=== PATIENT | male | born 1955 | race Caucasian/White ===

== ENCOUNTER 2017-01-24 07:56 | Day surgery (SDC) | payer BC ==
[~2017-01-24 07:56] MED LIST: Lactated Ringers 1,000 ML IV SCH; Lidocaine 1%/Sod Bicarbonate in NS 8.4% 1 ML Syringe IV PRN; Sodium Chloride 0.9% 10 ML Syringe FLUSH PRN
--- NOTE | 2017-01-24 08:27 | PCM.PREANE ---
Preanesthetic Assessment - Anesthesia/Transfusion/Family Hx Anesthesia History: Prior Anesthesia Without Reaction Family History of Anesthesia Reaction: No Transfusion History: No Prior Transfusion(s) Intubation History: Unknown - Review of Systems General: No Symptoms Pulmonary: No Symptoms Cardiovascular: Other (CAD with stent (2004), HTN, HLD, [place]) Gastrointestinal: No symptoms Neurological: No Symptoms Other: Reports: None - Physical Assessment NPO Status Date: 01/23/17 NPO Status Time: 21:00 Pulse: 65 O2 Sat by Pulse Oximetry: 93 Respiratory Rate: 16 Blood Pressure: 151/88 Temperature: 36.8 C Height: 1.8 m Weight: 142.428 kg ASA Class: 3 Mental Status: Alert & Oriented x3 Dentition: Reports: Normal Dentition, Partial ROM/Head Extension: Full Lungs: Clear to auscultation, Normal respiratory effort Cardiovascular: Regular Rate, Regular Rhythm - Blood Blood Available: No Product(s) Available: None - Anesthesia Plan Pre-Op Medication Ordered: None Beta Bertha: Metoprolol Med Last Dose Date: 01/24/17 Med Last Dose Time: 06:00 - Acknowledgements Anesthesia Type Planned: MAC (hasnt taken plavix for 6 days) Pt an Appropriate Candidate for the Planned Anesthesia: Yes Alternatives and Risks of Anesthesia Discussed w Pt/Guardian: Yes Pt/Guardian Understands and Agrees with Anesthesia Plan: Yes PreAnesthesia Questionnaire - SUBSTANCE USE Smoking Status *Q: Former Smoker Tobacco Use Within Last Twelve Months: No Second Hand Smoke Exposure: No Recreational Drug Use History: No - CURRENT (IN HOUSE) MEDS Current Meds: Current Medications Lactated Ringer's (Ringers, Lactated) 1,000 mls @ 125 mls/hr IV ASDIRECTED [facility] Stop: 01/24/17 23:00 Lidocaine/Sodium Bicarbonate (Buffered Lidocaine 1% In Ns 8.4%) 0.25 ml IV ONETIME PRN PRN Reason: Prior to IV Start Stop: 01/24/17 18:00 Sodium Chloride (Saline Flush) 10 ml FLUSH ASDIRECTED PRN PRN Reason: Keep Vein Open Stop: 01/24/17 18:00
[2017-01-24] MEDS ORDERED: Midazolam 1 MG/ML 2 ML SDV ONE (08:49)
[2017-01-24] MEDS ORDERED: Propofol 200 MG/20 ML SDV ONE ×2 (08:49→10:11)
[2017-01-24] MEDS ORDERED: Simethicone Drops 40 MG/0.6 ML 30 ML Bottle ONE (09:39)
--- NOTE | 2017-01-24 10:09 | PCM48HPAN ---
Post Anesthesia Note - EVALUATION WITHIN 48HRS OF ANESTHETIC Vital Signs in Normal Range: Yes Patient Participated in Evaluation: Yes Respiratory Function Stable: Yes Airway Patent: Yes Cardiovascular Function Stable: Yes Hydration Status Stable: Yes Pain Control Satisfactory: Yes Nausea and Vomiting Control Satisfactory: Yes Mental Status Recovered: Yes
--- NOTE | 2017-01-24 10:09 | PCM.OPNOTE ---
- General Post-Op/Procedure Note Date of Surgery/Procedure: 01/24/17 Operative Procedure(s): screening colonoscopy Pre Op Diagnosis: screening Post-Op Diagnosis: Same Anesthesia Technique: MAC Primary Surgeon: Erasmo Deleon EBL in mLs: 0 Complications: None Condition: Good
[2017-01-24 10:19] VITALS: BP 115/76
--- NOTE | 2017-01-25 08:49 | OR ---
DATE OF OPERATION: 01/24/2017 SURGEON: Erasmo Deleon MD PREOPERATIVE DIAGNOSIS: Screening colonoscopy. POSTOPERATIVE DIAGNOSIS: Screening colonoscopy. OPERATION PERFORMED: Colonoscopy to cecum and cannulation of the ileum. FINDINGS: Normal study. RECOMMENDATIONS: Repeat colonoscopy in 10 years. ANESTHESIA: Procedure done under IV sedation. DESCRIPTION OF PROCEDURE: The patient was taken to the operating room, placed in a supine position, connected to monitoring equipment, given IV sedation, and placed in left lateral position. The perianal area was inspected. Rectal exam performed and video Olympus colonoscope was then introduced into the rectum and threaded up without problem to the cecum, where the ileocecal valve and appendicular orifice was noted. The ileum was cannulated and was normal. Prep was excellent. [place] Cleansing score grade A and the scoped throughout the colon, and the scope was slowly withdrawn showing the cecum, ascending colon, transverse colon, descending colon, sigmoid colon, and rectum. Retroflexed view was done. The patient tolerated the procedure, sent to recovery room in a stable condition. He will be followed up as needed by family doctor. ESTIMATED BLOOD LOSS: MMODAL /[id number]
== END 2017-01-24 10:31 | disposition home or self-care (01) ==
LOC: JD.SDS 07:56
PROVIDERS: ATTEND Surgery
PROC: 0DJD8ZZ Inspection of Lower Intestinal Tract, Via Natural or Artificial Opening Endoscopic (ICD-10-PCS; principal; 2017-01-24)
DX: Z12.11 Encounter for screening for malignant neoplasm of colon (principal); I25.10 Atherosclerotic heart disease of native coronary artery without angina pectoris; I10 Essential (primary) hypertension; I25.2 Old myocardial infarction; Z85.46 Personal history of malignant neoplasm of prostate; Z87.891 Personal history of nicotine dependence; Z90.89 Acquired absence of other organs; Z98.890 Other specified postprocedural states; Z79.02 Long term (current) use of antithrombotics/antiplatelets; Z79.82 Long term (current) use of aspirin; Z79.899 Other long term (current) drug therapy
CPT/HCPCS: 45378; A9270; J2250; J7120; 00810; J2704

== ENCOUNTER 2017-10-17 11:01 | Day surgery (SDC) | payer BC ==
[~2017-10-17 11:01] MED LIST changes: +Bisacodyl 5 MG Tab PO PRN; +Cyclobenzaprine 10 MG Tab PO PRN; +Lidocaine 1%/Sod Bicarbonate in NS 8.4% 1 ML Syringe IDERM PRN; -Lidocaine 1%/Sod Bicarbonate in NS 8.4% 1 ML Syringe IV PRN; +Magnesium Hydroxide 400 MG/5 ML Susp 30 ML Cup PO PRN; +Morphine 2 MG/ML Syringe IVPUSH PRN; +Naloxone 0.4 MG/ML SDV IVPUSH PRN; +Ondansetron 4 MG/2 ML SDV IVPUSH PRN; +Sennosides 8.6 MG Tab PO PRN; +diphenhydrAMINE 50 MG/ML SDV IVPUSH PRN
--- NOTE | 2017-10-17 11:30 | PCM.PREANE ---
Preanesthetic Assessment - Anesthesia/Transfusion/Family Hx Anesthesia History: Prior Anesthesia Without Reaction Family History of Anesthesia Reaction: No Transfusion History: No Prior Transfusion(s) Intubation History: Unknown - Review of Systems General: No Symptoms Pulmonary: No Symptoms (Former smoker: quit in 2001) Cardiovascular: No Symptoms (History of HTN,ASHD, ST elevation infarction involving left main coronary artery with stent placement noted in 2004. ( Patient does take plavix.)) Neurological: No Symptoms (Back surgery for herniated ruptured disk), Gait Disturbance (due to left knee pain) Other: Reports: None, Easy Bleeding (Patient does take plavix and has been off for seven days. (last dose 10/09/2017)), Easy Bruising - Physical Assessment NPO Status Date: 10/16/17 NPO Status Time: 21:30 Pulse: 71 O2 Sat by Pulse Oximetry: 93 Respiratory Rate: 16 Blood Pressure: 160/97 Temperature: 36.1 C Height: 1.78 m Weight: 144.696 kg ASA Class: 3 Mental Status: Alert & Oriented x3 Airway Class: Mallampati = 3 Dentition: Reports: Normal Dentition (dental implants noted.), Caries Thyro-Mental Finger Breadths: 3 Mouth Opening Finger Breadths: 3 ROM/Head Extension: Full Lungs: Clear to Auscultation, Normal Respiratory Effort Cardiovascular: Regular Rate, Regular Rhythm, No Murmurs - Lab Values: Laboratory Last Values MRSA (PCR) Negative 10/05/17 13:00 hgb= 15 hct=45.1 [id number]=812,000 All other lab values reviewed and noted and within acceptable ranges to proceed with scheduled procedure. - Imaging/EKG Impressions: EKG: SR rate=61, borderline left axis deviation CXR: Unremarkable Patient declined a lexiscan stress test. - Allergies Allergies/Adverse Reactions: Allergies Allergy/AdvReac Type Severity Reaction Status Date / Time No Known Allergies Allergy Verified 01/24/17 08:38 - Anesthesia Plan Pre-Op Medication Ordered: Beta Bertha Beta Bertha: Metoprolol Med Last Dose Date: 10/17/17 Med Last Dose Time: 09:00 - Acknowledgements Anesthesia Type Planned: Spinal (Femoral nerve block within the adductor canal on the left leg for post operative pain control under US guidance requested by Dr. Aleman.) Pt an Appropriate Candidate for the Planned Anesthesia: Yes Alternatives and Risks of Anesthesia Discussed w Pt/Guardian: Yes Pt/Guardian Understands and Agrees with Anesthesia Plan: Yes PreAnesthesia Questionnaire HEENT History: Reports: None Cardiovascular History: Reports: CAD, Hypertension, [place], Stents, Other (See Below ) Other Cardiovascular History: arteriosclerotic heart disease Respiratory History: Reports: None Gastrointestinal History: Reports: None Genitourinary History: Reports: Other (See Below) Other Genitourinary History: prostate neoplasm [employer] History: Reports: None Musculoskeletal History: Reports: Other (See Below) Other Musculoskeletal History: left knee pain, right foot fracture x 2 Neurological History: Reports: Other (See Below) Other Neuro History: back surgery herniated/ruptured disc Psychiatric History: Reports: None Endocrine/Metabolic History: Reports: None Hematologic History: Reports: None Immunologic History: Reports: None Oncologic (Cancer) History: Reports: Prostate Dermatologic History: Reports: None - Past Surgical History HEENT Surgical History: Reports: Oral Surgery, Tonsillectomy Cardiovascular Surgical History: Reports: None Respiratory Surgical History: Reports: None GI Surgical History: Reports: Colonoscopy, EGD Female Surgical History: Reports: None Male Surgical History: Reports: None Endocrine Surgical History: Reports: None Neurological Surgical History: Reports: None Musculoskeletal Surgical History: Reports: None Oncologic Surgical History: Reports: None Dermatological Surgical History: Reports: None - SUBSTANCE USE Smoking Status *Q: Former Smoker Tobacco Use Within Last Twelve Months: No Second Hand Smoke Exposure: No Recreational Drug Use History: No - HOME MEDS Home Medications: Home Meds Aspirin 81 mg PO DAILY 10/14/17 [History] Clopidogrel Bisulfate [Clopidogrel] 75 mg PO DAILY 10/14/17 [History] Ibuprofen [Motrin] 600 mg PO BID PRN 10/14/17 [History] Losartan [Cozaar] 100 mg PO DAILY 10/14/17 [History] Metoprolol Succinate [Metoprolol Succinate] 50 mg PO DAILY 10/14/17 [History] Pantoprazole Sodium [Protonix] 40 mg PO DAILY PRN 10/14/17 [History] amLODIPine Besylate [Amlodipine Besylate] 5 mg PO DAILY 10/14/17 [History] traMADol HCl [Tramadol HCl] 50 mg PO TID PRN 10/14/17 [History] - CURRENT (IN HOUSE) MEDS Current Meds: Current Medications Aspirin (Ecotrin) 325 mg PO BID [facility] Bisacodyl (Dulcolax) 5 mg PO DAILY PRN PRN Reason: Constipation Cyclobenzaprine HCl (Flexeril) 10 mg PO TID PRN PRN Reason: Spasms Diphenhydramine HCl (Benadryl) 25 mg IVPUSH Q4H PRN PRN Reason: Nausea Docusate Sodium (Colace) 100 mg PO BID [facility] Famotidine (Pepcid) 20 mg PO Q12H [facility] Lactated Ringer's (Ringers, Lactated) 1,000 mls @ 125 mls/hr IV ASDIRECTED [facility] Stop: 10/17/17 23:00 Cefazolin Sodium/Dextrose 2 gm (/ Premix) 50 mls @ 100 mls/hr IV Q8H [facility] Stop: 10/17/17 23:29 Ketorolac Tromethamine (Toradol) 15 mg IVPUSH Q6H PRN PRN Reason: Pain Lidocaine/Sodium Bicarbonate (Buffered Lidocaine 1% In Ns 8.4%) 0.25 ml IDERM ONETIME PRN PRN Reason: Prior to IV Start Stop: 10/17/17 18:00 Magnesium Hydroxide (Milk Of Magnesia) 30 ml PO BID PRN PRN Reason: Constipation Morphine Sulfate (Morphine) 2 mg IVPUSH Q2H PRN PRN Reason: Breakthrough Pain Naloxone HCl (Narcan) 0.1 mg IVPUSH Q5M PRN PRN Reason: Oversedation Ondansetron HCl (Zofran) 4 mg IVPUSH Q6H PRN PRN Reason: Nausea/Vomiting Oxycodone/Acetaminophen (Percocet 325-5 Mg) 1 - 2 tab PO Q4H PRN PRN Reason: Pain Senna (Senna) 8.6 mg PO BID PRN PRN Reason: Constipation Sodium Chloride (Saline Flush) 10 ml FLUSH ASDIRECTED PRN PRN Reason: Keep Vein Open Stop: 10/17/17 18:00 Discontinued Medications Bupivacaine HCl (Marcaine 0.25%) Confirm Administered Dose 30 ml .ROUTE .STK- MED ONE Stop: 10/17/17 11:08 Cefazolin Sodium (Ancef) Confirm Administered Dose 2 gm .ROUTE .STK-MED ONE Stop: 10/17/17 11:08 Morphine Sulfate 8 mg/Epinephrine HCl 0.3 mg/Cefuroxime Sodium 750 mg/Ketorolac Tromethamine 30 mg/Sodium Chloride 27.9 ml 0 mg .XX ONETIME ONE Stop: 10/17/17 06:47 Iodine (Iodine 2% Mild Tincture) Confirm Administered Dose 30 ml .ROUTE .STK- MED ONE Stop: 10/17/17 11:08 Tranexamic Acid (Cyklokapron) Confirm Administered Dose 1,000 mg .ROUTE .STK- MED ONE Stop: 10/17/17 11:08 Vancomycin HCl (Vancomycin) Confirm Administered Dose 1 gm .ROUTE .STK-MED ONE Stop: 10/17/17 11:08
[2017-10-17] MEDS ORDERED: Propofol 200 MG/20 ML SDV ONE ×2 (11:43→14:17)
[2017-10-17] MEDS ORDERED: Midazolam 1 MG/ML 2 ML SDV ONE (11:43)
[2017-10-17] MEDS ORDERED: ceFAZolin 1 GM Vial ONE ×2 (11:44→12:44)
[2017-10-17] MEDS ORDERED: Lidocaine 1% 4 ML ONE (11:44)
[2017-10-17] MEDS ORDERED: Ketamine 500 mg/10 ML MDV ONE (13:02)
[2017-10-17] MEDS ORDERED: Ondansetron 4 MG/2 ML SDV ONE (13:10)
[2017-10-17] MEDS ORDERED: Dexamethasone 4 MG/ML 5 ML MDV ONE (13:10)
[2017-10-17] MEDS: Bupivacaine 0.25% 30 ML SDV ONE ×2 (13:27→13:58)
[2017-10-17] MEDS: Iodine/Sodium Iodide 2% Tincture 30 ML Bottle ONE ×2 (13:28→13:50)
[2017-10-17] MEDS: ceFAZolin 1 GM Vial ONE ×2 (13:28→13:52)
[2017-10-17] MEDS: Morphine 8 MG, EPINEPHrine 0.3 MG, Cefuroxime 750 MG, Ketorolac 30 MG, Sodium Chloride ... ONE ×15 (13:29→19:51)
[2017-10-17] MEDS: Vancomycin 1 GM SDV ONE ×2 (13:30→14:00)
[2017-10-17] MEDS ORDERED: HYDROmorphone 0.5 MG/0.5 ML Syringe IVPUSH PRN (13:37)
[2017-10-17] MEDS ORDERED: ePHEDrine 50 MG/ML SDV IVPUSH PRN (13:37)
[2017-10-17] MEDS ORDERED: fentaNYL 100 MCG/2 ML SDV IVPUSH PRN (13:37)
[2017-10-17] MEDS ORDERED: diphenhydrAMINE 50 MG/ML SDV IVPUSH PRN (13:37)
[2017-10-17] MEDS ORDERED: Haloperidol Lactate 5 MG/ML SDV IVPUSH ONE (13:37)
[2017-10-17] MEDS ORDERED: Phenylephrine/Normal Saline 100 MCG/ML 10 ML Syringe ONE ×2 (13:59→14:06)
[2017-10-17] MEDS ORDERED: Ketorolac 30 MG/ML SDV ONE (13:59)
[2017-10-17] MEDS ORDERED: ePHEDrine/Normal Saline 25 MG/5 ML Syringe ONE (14:00)
[2017-10-17] MEDS ORDERED: Lactated Ringers 3,000 ML ONE (14:01)
[2017-10-17] MEDS ORDERED: EPINEPHrine 1 MG/ML SDV ONE (14:25)
[2017-10-17] MEDS ORDERED: Ropivacaine 0.5% 5 MG/ML 30 ML SDV ONE (14:25)
[2017-10-17] MEDS ORDERED: HYDROmorphone 1 MG/ML Syringe ONE (14:38)
--- NOTE | 2017-10-17 14:41 | PCM.POSTAN ---
POST ANESTHESIA ASSESSMENT - MENTAL STATUS Mental Status: Alert, Oriented - VITAL SIGNS Pulse Rate: 74 SaO2: 93 Resp Rate: 15 Blood Pressure: 96/54 Temperature: 36.4 C - RESPIRATORY Respiratory Status: Respiratory Rate WNL, Airway Patent, O2 Saturation Stable, Supplemental Oxygen - CARDIOVASCULAR CV Status: Pulse Rate WNL, Blood Pressure Stable - GASTROINTESTINAL GI Status: No Symptoms - PAIN Pain Score: 0 - POST OP HYDRATION Hydration Status: Adequate & Stable
--- NOTE | 2017-10-17 15:20 | CR ---
Left knee: AP and lateral views of the left knee were obtained. Comparison: No prior study. Knee prosthesis is seen. Components are aligned. Soft tissue air is seen from the surgical procedure. Underlying bony structures are intact. Impression: 1. Satisfactory postop radiographic appearance of recently placed knee prosthesis. Diagnostic code #2
--- NOTE | 2017-10-17 15:32 | PCM.SN ---
- Free Text/Narrative Note: Left selective femoral nerve block at the adductor canal for post-procedure pain control Start: 1507 End: 1520 Chart reviewed. Consent signed. Questions answered. Appropriate monitors applied. Time out performed. Left mid-shaft femur evaluated with ultrasound. Scanning medially femur, I was able to identify the femoral artery in the adductor canal. The saphenous nerve was lateral to the artery. The skin was prepped lateral to the ultrasound probe with chlorahexadine. Skin localized with 3mL of 1% lidocaine. The 21ga 4 insulated block needle was inserted under direct ultrasound guidance into the adductor canal. 20mL of 0.5% ropivacaine with 1:200,000 epinephrine was injected circumferentially about the nerve with intermittent negative aspiration. Patient tolerated the procedure well. See pictures on progress note and vital signs on nurses notes. Block completed preoperatively. Aly Goyal CRNA
--- NOTE | 2017-10-17 15:45 | PCM.CONS ---
H&P History of Present Illness - General Date of Service: 10/17/17 Admit Problem/Dx: Admission Diagnosis/Problem Admission Diagnosis/Problem Osteoarthritis of knee Source of Information: Patient, Old Records, Provider, RN, RN Notes Reviewed, Other (surgical notes ) - History of Present Illness Initial Comments - Free Text/Narative: Edgar Morton is a 61 yo male patient of Dr. Aleman who is post-operative day 0 of left TKA. Hospital medicine was consulted for post-operative medical care. At this time he is resting comfortably in bed. Pain is completely absent. He denies any chest pain, shortness of breath, palpitations, nausea, or vomiting. He carries a history of: CAD, HTN, CO with stent placement, prostate cancer, herniated disc with back surgery. He is a former smoker. He is a full code. His primary care provider is Dr. Marie at [facility] in [place]. Left Knee Pain Score (Numeric/FACES): 0 - Related Data Allergies/Adverse Reactions: Allergies Allergy/AdvReac Type Severity Reaction Status Date / Time No Known Allergies Allergy Verified 10/17/17 12:02 Home Medications: Home Meds Aspirin 81 mg PO DAILY 10/14/17 [History] Clopidogrel Bisulfate [Clopidogrel] 75 mg PO DAILY 10/14/17 [History] Ibuprofen [Motrin] 600 mg PO BID PRN 10/14/17 [History] Losartan [Cozaar] 100 mg PO DAILY 10/14/17 [History] Metoprolol Succinate [Metoprolol Succinate] 50 mg PO DAILY 10/14/17 [History] Pantoprazole Sodium [Protonix] 40 mg PO DAILY PRN 10/14/17 [History] amLODIPine Besylate [Amlodipine Besylate] 5 mg PO DAILY 10/14/17 [History] traMADol HCl [Tramadol HCl] 50 mg PO TID PRN 10/14/17 [History] Past Medical History HEENT History: Reports: None Cardiovascular History: Reports: CAD, Hypertension, [place], Stents, Other (See Below ) Other Cardiovascular History: arteriosclerotic heart disease Respiratory History: Reports: None Gastrointestinal History: Reports: None Genitourinary History: Reports: Other (See Below) Other Genitourinary History: prostate neoplasm [employer] History: Reports: None Musculoskeletal History: Reports: Other (See Below) Other Musculoskeletal History: left knee pain, right foot fracture x 2 Neurological History: Reports: Other (See Below) Other Neuro History: back surgery herniated/ruptured disc Psychiatric History: Reports: None Endocrine/Metabolic History: Reports: None Hematologic History: Reports: None Immunologic History: Reports: None Oncologic (Cancer) History: Reports: Prostate Dermatologic History: Reports: None - Past Surgical History HEENT Surgical History: Reports: Oral Surgery, Tonsillectomy Cardiovascular Surgical History: Reports: None Respiratory Surgical History: Reports: None GI Surgical History: Reports: Colonoscopy, EGD Female Surgical History: Reports: None Male Surgical History: Reports: None Endocrine Surgical History: Reports: None Neurological Surgical History: Reports: None Musculoskeletal Surgical History: Reports: None Oncologic Surgical History: Reports: None Dermatological Surgical History: Reports: None Social & Family History - Tobacco Use Smoking Status *Q: Former Smoker Used Tobacco, but Quit: Yes Month Tobacco Last Used: 2001 Second Hand Smoke Exposure: No - Caffeine Use Caffeine Use: Reports: None - Recreational Drug Use Recreational Drug Use: No Drug Use in Last 12 Months: No H&P Review of Systems - Review of Systems: Review Of Systems: See Below General: Reports: No Symptoms HEENT: Reports: No Symptoms Pulmonary: Reports: No Symptoms Cardiovascular: Reports: No Symptoms Gastrointestinal: Reports: No Symptoms Genitourinary: Reports: No Symptoms Musculoskeletal: Reports: Joint Pain (Left knee - absent now ) Skin: Reports: No Symptoms Psychiatric: Reports: No Symptoms Neurological: Reports: No Symptoms Hematologic/Lymphatic: Reports: No Symptoms Immunologic: Reports: No Symptoms Exam - Exam Exam: See Below - Vital Signs Vital Signs: Last Vital Signs Temp 97.5 F 10/17/17 14:54 Pulse 74 10/17/17 14:41 Resp 16 10/17/17 15:30 BP 107/60 10/17/17 15:30 Pulse Ox 93 L 10/17/17 15:30 Weight: 318 lb 14.4 oz - Exam Quality Assessment: Supplemental Oxygen, DVT Prophylaxis General: Alert, Oriented, Cooperative. No: Mild Distress HEENT: PERRLA, Hearing Intact, Mucosa Moist & [place], Nares Patent, Normal Nasal Septum, Posterior Pharynx Clear, Conjunctiva Clear, EOMI, EACs Clear, TMs Clear Neck: Supple, Trachea Midline Lungs: Clear to Auscultation, Normal Respiratory Effort Cardiovascular: Regular Rate, Regular Rhythm GI/Abdominal Exam: Normal Bowel Sounds, Soft, Non-Tender, No Organomegaly, No Distention, No Abnormal Bruit, No Mass, Pelvis Stable (Male) Exam: Deferred Rectal (Males) Exam: Deferred Back Exam: Normal Inspection, Full Range of Motion Extremities: Normal Capillary Refill, Leg Pain (left knee), Other (Eliseo bandage in place on left leg. Bandages dry and intact. Cold pack in place.) Peripheral Pulses: 1+: Posterior Tibial (L), Posterior Tibial (R), Dorsalis Pedis (L), Dorsalis Pedis (R), 2+: Radial (R), Femoral (L) Skin: Warm, Dry, Intact Neurological: Cranial Nerves Intact (grossly) Neuro Extensive - Mental Status: Alert, Oriented x3, Normal Mood/Affect, Normal Cognition, Memory Intact Psychiatric: Alert, Normal Affect, Normal Mood Consult PN Assessment/Plan POD#: 0 Procedures: Procedures DIAGNOSTIC COLONOSCOPY (01/24/17) MEDICAL NUTRITION INDIV IN (02/07/17) (1) S/P total knee arthroplasty SNOMED Code(s): 9847183143132, 3565826252266 Code(s): Z96.659 - PRESENCE OF UNSPECIFIED ARTIFICIAL KNEE JOINT Priority: High Current Visit: Yes Qualifiers: Laterality: left Qualified Code(s): Z96.652 - Presence of left artificial knee joint (2) Osteoarthritis SNOMED Code(s): 226782597 Code(s): M19.90 - UNSPECIFIED OSTEOARTHRITIS, UNSPECIFIED SITE Priority: High Current Visit: Yes Qualifiers: Osteoarthritis location: knee Osteoarthritis type: primary Laterality: left Qualified Code(s): M17.12 - Unilateral primary osteoarthritis, left knee (3) CAD (coronary artery disease) SNOMED Code(s): 73727636 Code(s): I25.10 - ATHSCL HEART DISEASE OF [place] CORONARY ARTERY W/O ANG PCTRS Priority: Low Current Visit: No Qualifiers: Coronary Disease-Associated Artery/Lesion type: [place] artery [place] vs. transplanted heart: [place] heart Associated angina: angina presence unspecified Qualified Code(s): I25.10 - Atherosclerotic heart disease of [place] coronary artery without angina pectoris (4) HTN (hypertension) SNOMED Code(s): 23571304 Code(s): I10 - ESSENTIAL (PRIMARY) HYPERTENSION Current Visit: Yes Qualifiers: Hypertension type: unspecified Qualified Code(s): I10 - Essential (primary ) hypertension (5) History of myocardial infarction SNOMED Code(s): 854594457 Code(s): I25.2 - OLD MYOCARDIAL INFARCTION Priority: Low Current Visit: No (6) History of prostate cancer SNOMED Code(s): 486353778 Code(s): Z85.46 - PERSONAL HISTORY OF MALIGNANT NEOPLASM OF PROSTATE Priority: Low Current Visit: No Problem List Initiated/Reviewed/Updated: Yes Plan: I/P: Acute: S/P left total knee arthroplasty - post-operative day 0 -DVT prophylaxis and pain management per primary care team -PT/OT -IS/RT -Monitor oxygen saturation -Titrate oxygen as needed -Vital signs stable -Monitor labs Osteoarthritis of left knee -Pain management per primary care team Chronic: CAD HTN Hx/o CO with stent placement Hx/o herniated/ruptured disk with surgical repair Hx/o prostate cancer Plan: CM for discharge planning GI prophylaxis Home medications as indicated Other orders as listed above Routine AM labs He is a full code. His PCP is Dr. Marie at [facility] here in [place] Thank you for allowing us to participate in the care of this patient!! Total time spent with patient 30 minutes Requesting Provider: Dr. Aleman Date Consult Requested: 10/17/17 Reason for Consult: Post-operative medical managment Patient History Reviewed: Yes Admission H&P Reviewed: Yes Time Spent (in minutes): 30
[2017-10-17] MEDS: ceFAZolin 2 GM in Premix Bag 1 BAG IV SCH (18:49)
[2017-10-17] MEDS: Acetaminophen/oxyCODONE 325-5 MG Tab PO PRN ×2 (19:22→23:49)
[2017-10-17] MEDS ORDERED: ceFAZolin 2 GM in Premix Bag 1 BAG IV SCH (19:30)
[2017-10-17] MEDS: Ketorolac 15 MG/ML SDV IVPUSH PRN (20:16)
[2017-10-17] MEDS: ceFAZolin 1 GM in Premix Bag 1 BAG IV SCH (20:21)
[2017-10-17] MEDS: Docusate Sodium 100 MG Cap PO SCH (20:23)
[2017-10-17] MEDS: Famotidine 20 MG Tab PO SCH (20:23)
[2017-10-18] MEDS: Ketorolac 15 MG/ML SDV IVPUSH PRN ×2 (02:40→11:11)
[2017-10-18] MEDS: ceFAZolin 2 GM in Premix Bag 1 BAG IV SCH ×2 (02:46→11:10)
[2017-10-18] MEDS: ceFAZolin 1 GM in Premix Bag 1 BAG IV SCH ×2 (03:17→12:15)
--- NOTE | 2017-10-18 08:05 | PCM48HPAN ---
Post Anesthesia Note - EVALUATION WITHIN 48HRS OF ANESTHETIC Vital Signs in Normal Range: Yes Patient Participated in Evaluation: Yes Respiratory Function Stable: Yes Airway Patent: Yes Cardiovascular Function Stable: Yes Hydration Status Stable: Yes Pain Control Satisfactory: Yes Nausea and Vomiting Control Satisfactory: Yes Mental Status Recovered: Yes - COMMENTS/OBSERVATIONS Free Text/Narrative:: Patient doing well resting in bed. Denies any headache, back pain, residual numbness/ tingling to LE.
[2017-10-18] MEDS: Famotidine 20 MG Tab PO SCH (08:08)
[2017-10-18] MEDS: Docusate Sodium 100 MG Cap PO SCH (08:11)
[2017-10-18] MEDS: Acetaminophen/oxyCODONE 325-5 MG Tab PO PRN ×2 (08:19→14:46)
[2017-10-18] MEDS ORDERED: Losartan 100 MG Tab PO SCH (09:00)
[2017-10-18] MEDS ORDERED: Aspirin 325 MG Tab.EC PO SCH (09:00)
[2017-10-18] MEDS ORDERED: Metoprolol Succinate 50 MG Tab.ER PO SCH (09:00)
[2017-10-18] MEDS ORDERED: amLODIPine 5 MG Tab PO SCH (09:00)
[2017-10-18 11:57] VITALS: BP 150/55
--- NOTE | 2017-10-18 12:22 | PCM.SURGPN ---
- General Info Date of Service: 10/18/17 POD#: 1 Functional Status: Reports: Pain Controlled, Tolerating Diet, Ambulating, Urinating, Incentive Spirometry - Review of Systems Musculoskeletal: Reports: Other (The pt has met inpatient therapy goals.) - Patient Data Vitals - Most Recent: Last Vital Signs Temp 98.8 F 10/18/17 11:01 Pulse 65 10/18/17 11:01 Resp 20 10/18/17 11:01 BP 150/55 H 10/18/17 11:01 Pulse Ox 95 10/18/17 11:01 Weight - Most Recent: 318 lb 14.4 oz I&O - Last 24 Hours: Intake & Output 10/17/17 10/18/17 10/18/17 22:59 06:59 14:59 Intake Total 780 400 120 Output Total 600 Balance 780 -200 120 Lab Results Last 24 Hrs: Laboratory Results - last 24 hr 10/18/17 10/18/17 Range/Units 05:15 05:15 WBC 12.92 H (4.23-9.07) K/mm3 RBC 4.39 L (4.63-6.08) M/mm3 Hgb 12.4 L (13.7-17.5) gm/L Hct 38.5 L (40.1-51.0) % MCV 87.7 (79.0-92.2) fl MCH 28.2 (25.7-32.2) pg MCHC 32.2 (32.2-35.5) g/dl RDW Std Deviation 46.6 H (35.1-43.9) fL Plt Count 204 (163-337) K/mm3 MPV 10.9 (9.4-12.3) fl Sodium 138 (136-145) mEq/L Potassium 4.8 (3.5-5.1) mEq/L Chloride 105 (98-107) mEq/L Carbon Dioxide 26 (21-32) mEq/L Anion Gap 11.8 (5-15) BUN 18 (7-18) mg/dL Creatinine 1.0 (0.7-1.3) mg/dL Est Cr Clr Drug Dosing 82.13 mL/min Estimated GFR (MDRD) > 60 (>60) mL/min BUN/Creatinine Ratio 18.0 (14-18) Glucose 143 H (74-106) mg/dL Calcium 8.4 L (8.5-10.1) mg/dL Total Bilirubin 0.3 (0.2-1.0) mg/dL AST 16 (15-37) U/L ALT 27 (16-63) U/L Alkaline Phosphatase 59 (46-116) U/L Total Protein 6.1 L (6.4-8.2) g/dl Albumin 3.0 L (3.4-5.0) g/dl Globulin 3.1 gm/dL Albumin/Globulin Ratio 1.0 (1-2) Med Orders - Current: Current Medications Amlodipine Besylate (Norvasc) 5 mg PO DAILY [facility] Last Admin: 10/18/17 08:09 Dose: 5 mg Aspirin (Ecotrin) 325 mg PO BID [facility] Last Admin: 10/18/17 08:09 Dose: 325 mg Bisacodyl (Dulcolax) 5 mg PO DAILY PRN PRN Reason: Constipation Cyclobenzaprine HCl (Flexeril) 10 mg PO TID PRN PRN Reason: Spasms Last Admin: 10/18/17 08:09 Dose: 10 mg Diphenhydramine HCl (Benadryl) 25 mg IVPUSH Q4H PRN PRN Reason: Nausea Docusate Sodium (Colace) 100 mg PO BID [facility] Last Admin: 10/18/17 08:11 Dose: 100 mg Famotidine (Pepcid) 20 mg PO Q12H [facility] Last Admin: 10/18/17 08:08 Dose: 20 mg Cefazolin Sodium/Dextrose 1 gm (/ Premix) 50 mls @ 100 mls/hr IV Q8H [facility] Stop: 10/18/17 12:29 Last Admin: 10/18/17 12:15 Dose: 100 mls/hr Losartan Potassium (Cozaar) 100 mg PO DAILY [facility] Last Admin: 10/18/17 08:10 Dose: 100 mg Magnesium Hydroxide (Milk Of Magnesia) 30 ml PO BID PRN PRN Reason: Constipation Metoprolol Succinate (Toprol Xl) 50 mg PO DAILY [facility] Last Admin: 10/18/17 08:10 Dose: 50 mg Morphine Sulfate (Morphine) 2 mg IVPUSH Q2H PRN PRN Reason: Breakthrough Pain Naloxone HCl (Narcan) 0.1 mg IVPUSH Q5M PRN PRN Reason: Oversedation Ondansetron HCl (Zofran) 4 mg IVPUSH Q6H PRN PRN Reason: Nausea/Vomiting Oxycodone/Acetaminophen (Percocet 325-5 Mg) 1 - 2 tab PO Q4H PRN PRN Reason: Pain Last Admin: 10/18/17 08:19 Dose: 2 tab Senna (Senna) 8.6 mg PO BID PRN PRN Reason: Constipation Discontinued Medications Bupivacaine HCl (Marcaine 0.25%) Confirm Administered Dose 30 ml .ROUTE .STK- MED ONE Stop: 10/17/17 11:08 Last Admin: 10/17/17 13:58 Dose: 30 ml Cefazolin Sodium (Ancef) Confirm Administered Dose 2 gm .ROUTE .STK-MED ONE Stop: 10/17/17 11:08 Last Admin: 10/17/17 13:52 Dose: 2 gm Cefazolin Sodium (Ancef) Confirm Administered Dose 2 gm .ROUTE .STK-MED ONE Stop: 10/17/17 11:45 Cefazolin Sodium (Ancef) Confirm Administered Dose 1 gm .ROUTE .STK-MED ONE Stop: 10/17/17 12:45 Morphine Sulfate 8 mg/Epinephrine HCl 0.3 mg/Cefuroxime Sodium 750 mg/Ketorolac Tromethamine 30 mg/Sodium Chloride 27.9 ml 0 mg .XX ONETIME ONE Stop: 10/17/17 06:47 Last Admin: 10/17/17 19:51 Dose: Not Given Dexamethasone (Dexamethasone) Confirm Administered Dose 20 mg .ROUTE .STK-MED ONE Stop: 10/17/17 13:11 Diphenhydramine HCl (Benadryl) 25 mg IVPUSH Q6H PRN PRN Reason: Pruritis Stop: 10/17/17 18:00 Ephedrine Sulfate (Ephedrine Sulfate) 5 mg IVPUSH ASDIRECTED PRN PRN Reason: Hypotension Stop: 10/17/17 18:00 Ephedrine Sulfate (Ephedrine In Ns) Confirm Administered Dose 25 mg .ROUTE .STK- MED ONE Stop: 10/17/17 14:01 Epinephrine HCl (Adrenalin) Confirm Administered Dose 1 mg .ROUTE .STK-MED ONE Stop: 10/17/17 14:26 Fentanyl (Sublimaze) 50 mcg IVPUSH Q5M PRN PRN Reason: Pain Stop: 10/17/17 18:00 Haloperidol Lactate (Haldol) 1 mg IVPUSH ONETIME ONE Stop: 10/17/17 13:38 Last Admin: 10/18/17 01:33 Dose: Not Given Hydromorphone HCl (Dilaudid) 0.5 mg IVPUSH Q15M PRN PRN Reason: severe pain Stop: 10/17/17 18:00 Hydromorphone HCl (Dilaudid) Confirm Administered Dose 1 mg .ROUTE .STK-MED ONE Stop: 10/17/17 14:39 Lactated Ringer's (Ringers, Lactated) 1,000 mls @ 125 mls/hr IV ASDIRECTED [facility] Stop: 10/17/17 23:00 Last Admin: 10/17/17 11:25 Dose: 125 mls/hr Cefazolin Sodium/Dextrose 2 gm (/ Premix) 50 mls @ 100 mls/hr IV Q8H [facility] Stop: 10/18/17 11:59 Lidocaine HCl (Xylocaine-Mpf 1%) Confirm Administered Dose 4 mls @ as directed .ROUTE .STK-MED ONE Stop: 10/17/17 11:45 Lactated Ringer's (Ringers, Lactated) Confirm Administered Dose 3,000 mls @ as directed .ROUTE .STK-MED ONE Stop: 10/17/17 14:02 Cefazolin Sodium/Dextrose 3 gm (/ Premix) 75 mls @ 100 mls/hr IV Q8H [facility] Stop: 10/18/17 12:14 Cefazolin Sodium/Dextrose 2 gm (/ Premix) 50 mls @ 100 mls/hr IV Q8H [facility] Stop: 10/18/17 11:59 Last Admin: 10/18/17 11:10 Dose: 100 mls/hr Iodine (Iodine 2% Mild Tincture) Confirm Administered Dose 30 ml .ROUTE .STK- MED ONE Stop: 10/17/17 11:08 Last Admin: 10/17/17 13:50 Dose: 18 ml Ketamine HCl (Ketalar) Confirm Administered Dose 500 mg .ROUTE .STK-MED ONE Stop: 10/17/17 13:03 Ketorolac Tromethamine (Toradol) 15 mg IVPUSH Q6H PRN PRN Reason: Pain Last Admin: 10/18/17 11:11 Dose: 15 mg Ketorolac Tromethamine (Toradol) Confirm Administered Dose 30 mg .ROUTE .STK- MED ONE Stop: 10/17/17 14:00 Lidocaine/Sodium Bicarbonate (Buffered Lidocaine 1% In Ns 8.4%) 0.25 ml IDERM ONETIME PRN PRN Reason: Prior to IV Start Stop: 10/17/17 18:00 Last Admin: 10/17/17 11:24 Dose: 0.25 ml Midazolam HCl (Versed 1 Mg/Ml) Confirm Administered Dose 2 mg .ROUTE .STK-MED ONE Stop: 10/17/17 11:44 Ondansetron HCl (Zofran) Confirm Administered Dose 4 mg .ROUTE .STK-MED ONE Stop: 10/17/17 13:11 Phenylephrine HCl (Phenylephrine In Ns 100 Mcg/Ml) Confirm Administered Dose 1 mg .ROUTE .STK-MED ONE Stop: 10/17/17 14:00 Phenylephrine HCl (Phenylephrine In Ns 100 Mcg/Ml) Confirm Administered Dose 1 mg .ROUTE .STK-MED ONE Stop: 10/17/17 14:07 Propofol (Diprivan 20 Ml) Confirm Administered Dose 600 mg .ROUTE .STK-MED ONE Stop: 10/17/17 11:44 Propofol (Diprivan 20 Ml) Confirm Administered Dose 200 mg .ROUTE .STK-MED ONE Stop: 10/17/17 14:18 Ropivacaine (Naropin 0.5%) Confirm Administered Dose 30 ml .ROUTE .STK-MED ONE Stop: 10/17/17 14:26 Sodium Chloride (Saline Flush) 10 ml FLUSH ASDIRECTED PRN PRN Reason: Keep Vein Open Stop: 10/17/17 18:00 Tranexamic Acid (Cyklokapron) Confirm Administered Dose 1,000 mg .ROUTE .STK- MED ONE Stop: 10/17/17 11:08 Last Admin: 10/17/17 14:06 Dose: 1,000 mg Vancomycin HCl (Vancomycin) Confirm Administered Dose 1 gm .ROUTE .STK-MED ONE Stop: 10/17/17 11:08 Last Admin: 10/17/17 14:00 Dose: 1 gm - Exam Wound/Incisions: Dressing Dry and Intact General: Alert, Cooperative, No Acute Distress Lungs: Normal Respiratory Effort Extremities: Other (NVS intact for BLE. Sukh's negative. ) - Problem List Review Problem List Initiated/Reviewed/Updated: Yes - My Orders Last 24 Hours: Active Orders 24 hr Category Date Time Status Pulse Oximetry [RC] ASDIRECTED Care 10/17/17 13:37 Active Regular Diet [DIET] Diet 10/17/17 Dinner Active Aspirin [Ecotrin] Med 10/18/17 09:00 Active 325 mg PO BID Docusate Sodium [Colace] Med 10/17/17 21:00 Active 100 mg PO BID Famotidine [Pepcid] Med 10/17/17 21:00 Active 20 mg PO Q12H Losartan [Cozaar] Med 10/18/17 09:00 Active 100 mg PO DAILY Metoprolol Succinate [Toprol XL] Med 10/18/17 09:00 Active 50 mg PO DAILY amLODIPine [Norvasc] Med 10/18/17 09:00 Active 5 mg PO DAILY ceFAZolin [Ancef] 1 gm Med 10/17/17 20:00 Active Premix Bag 1 bag IV Q8H Medication Orders Amlodipine Besylate (Norvasc) 5 mg PO DAILY [facility] Last Admin: 10/18/17 08:09 Dose: 5 mg Aspirin (Ecotrin) 325 mg PO BID [facility] Last Admin: 10/18/17 08:09 Dose: 325 mg Bisacodyl (Dulcolax) 5 mg PO DAILY PRN PRN Reason: Constipation Cyclobenzaprine HCl (Flexeril) 10 mg PO TID PRN PRN Reason: Spasms Last Admin: 10/18/17 08:09 Dose: 10 mg Diphenhydramine HCl (Benadryl) 25 mg IVPUSH Q4H PRN PRN Reason: Nausea Docusate Sodium (Colace) 100 mg PO BID [facility] Last Admin: 10/18/17 08:11 Dose: 100 mg Admin: 10/17/17 20:23 Dose: 100 mg Famotidine (Pepcid) 20 mg PO Q12H [facility] Last Admin: 10/18/17 08:08 Dose: 20 mg Admin: 10/17/17 20:23 Dose: 20 mg Cefazolin Sodium/Dextrose 1 gm (/ Premix) 50 mls @ 100 mls/hr IV Q8H [facility] Stop: 10/18/17 12:29 Last Admin: 10/18/17 12:15 Dose: 100 mls/hr Infusion: 10/18/17 03:47 Dose: 100 mls/hr Admin: 10/18/17 03:17 Dose: 100 mls/hr Infusion: 10/17/17 20:51 Dose: 100 mls/hr Admin: 10/17/17 20:21 Dose: 100 mls/hr Losartan Potassium (Cozaar) 100 mg PO DAILY [facility] Last Admin: 10/18/17 08:10 Dose: 100 mg Magnesium Hydroxide (Milk Of Magnesia) 30 ml PO BID PRN PRN Reason: Constipation Metoprolol Succinate (Toprol Xl) 50 mg PO DAILY [facility] Last Admin: 10/18/17 08:10 Dose: 50 mg Morphine Sulfate (Morphine) 2 mg IVPUSH Q2H PRN PRN Reason: Breakthrough Pain Naloxone HCl (Narcan) 0.1 mg IVPUSH Q5M PRN PRN Reason: Oversedation Ondansetron HCl (Zofran) 4 mg IVPUSH Q6H PRN PRN Reason: Nausea/Vomiting Oxycodone/Acetaminophen (Percocet 325-5 Mg) 1 - 2 tab PO Q4H PRN PRN Reason: Pain Last Admin: 10/18/17 08:19 Dose: 2 tab Admin: 10/17/17 23:49 Dose: 2 tab Admin: 10/17/17 19:22 Dose: 2 tab Senna (Senna) 8.6 mg PO BID PRN PRN Reason: Constipation - Assessment Assessment (Free Text/Narrative):: POD#1 - left TKA - Plan Plan (Free Text/Narrative):: 1. Discharge to home today. 2. Hgb 12.4. 3. ASA 325mg PO BID. Frequent mobility, TEDs. 4. Outpatient P.T. The pt's case was discussed with Dr. Aleman.
--- NOTE | 2017-10-18 12:48 | PCM.CONSN ---
- General Info Date of Service: 10/18/17 Admission Dx/Problem (Free Text): Admission Diagnosis/Problem Admission Diagnosis/Problem Osteoarthritis of knee POD #1, TKA with Dr. Aleman- doing very well Pain controlled, no n/v, voiding, ambulating. Plans to DC home today with . Functional Status: Reports: Pain Controlled, Tolerating Diet, Ambulating, Urinating, Incentive Spirometry - Review of Systems General: Reports: No Symptoms HEENT: Reports: No Symptoms Pulmonary: Reports: No Symptoms Cardiovascular: Reports: No Symptoms Gastrointestinal: Reports: No Symptoms Genitourinary: Reports: No Symptoms Musculoskeletal: Reports: Leg Pain Skin: Reports: No Symptoms Neurological: Reports: No Symptoms Psychiatric: Reports: No Symptoms - Patient Data Vitals - Most Recent: Last Vital Signs Temp 98.8 F 10/18/17 11:01 Pulse 65 10/18/17 11:01 Resp 20 10/18/17 11:01 BP 150/55 H 10/18/17 11:01 Pulse Ox 95 10/18/17 11:01 Weight - Most Recent: 318 lb 14.4 oz I&O - Last 24 Hours: Intake & Output 10/17/17 10/18/17 10/18/17 22:59 06:59 14:59 Intake Total 780 400 120 Output Total 600 Balance 780 -200 120 Lab Results Last 24 Hours: Laboratory Results - last 24 hr 10/18/17 10/18/17 Range/Units 05:15 05:15 WBC 12.92 H (4.23-9.07) K/mm3 RBC 4.39 L (4.63-6.08) M/mm3 Hgb 12.4 L (13.7-17.5) gm/L Hct 38.5 L (40.1-51.0) % MCV 87.7 (79.0-92.2) fl MCH 28.2 (25.7-32.2) pg MCHC 32.2 (32.2-35.5) g/dl RDW Std Deviation 46.6 H (35.1-43.9) fL Plt Count 204 (163-337) K/mm3 MPV 10.9 (9.4-12.3) fl Sodium 138 (136-145) mEq/L Potassium 4.8 (3.5-5.1) mEq/L Chloride 105 (98-107) mEq/L Carbon Dioxide 26 (21-32) mEq/L Anion Gap 11.8 (5-15) BUN 18 (7-18) mg/dL Creatinine 1.0 (0.7-1.3) mg/dL Est Cr Clr Drug Dosing 82.13 mL/min Estimated GFR (MDRD) > 60 (>60) mL/min BUN/Creatinine Ratio 18.0 (14-18) Glucose 143 H (74-106) mg/dL Calcium 8.4 L (8.5-10.1) mg/dL Total Bilirubin 0.3 (0.2-1.0) mg/dL AST 16 (15-37) U/L ALT 27 (16-63) U/L Alkaline Phosphatase 59 (46-116) U/L Total Protein 6.1 L (6.4-8.2) g/dl Albumin 3.0 L (3.4-5.0) g/dl Globulin 3.1 gm/dL Albumin/Globulin Ratio 1.0 (1-2) Med Orders - Current: Current Medications Amlodipine Besylate (Norvasc) 5 mg PO DAILY [facility] Last Admin: 10/18/17 08:09 Dose: 5 mg Aspirin (Ecotrin) 325 mg PO BID [facility] Last Admin: 10/18/17 08:09 Dose: 325 mg Bisacodyl (Dulcolax) 5 mg PO DAILY PRN PRN Reason: Constipation Cyclobenzaprine HCl (Flexeril) 10 mg PO TID PRN PRN Reason: Spasms Last Admin: 10/18/17 08:09 Dose: 10 mg Diphenhydramine HCl (Benadryl) 25 mg IVPUSH Q4H PRN PRN Reason: Nausea Docusate Sodium (Colace) 100 mg PO BID [facility] Last Admin: 10/18/17 08:11 Dose: 100 mg Famotidine (Pepcid) 20 mg PO Q12H [facility] Last Admin: 10/18/17 08:08 Dose: 20 mg Losartan Potassium (Cozaar) 100 mg PO DAILY [facility] Last Admin: 10/18/17 08:10 Dose: 100 mg Magnesium Hydroxide (Milk Of Magnesia) 30 ml PO BID PRN PRN Reason: Constipation Metoprolol Succinate (Toprol Xl) 50 mg PO DAILY [facility] Last Admin: 10/18/17 08:10 Dose: 50 mg Morphine Sulfate (Morphine) 2 mg IVPUSH Q2H PRN PRN Reason: Breakthrough Pain Naloxone HCl (Narcan) 0.1 mg IVPUSH Q5M PRN PRN Reason: Oversedation Ondansetron HCl (Zofran) 4 mg IVPUSH Q6H PRN PRN Reason: Nausea/Vomiting Oxycodone/Acetaminophen (Percocet 325-5 Mg) 1 - 2 tab PO Q4H PRN PRN Reason: Pain Last Admin: 10/18/17 08:19 Dose: 2 tab Senna (Senna) 8.6 mg PO BID PRN PRN Reason: Constipation Discontinued Medications Bupivacaine HCl (Marcaine 0.25%) Confirm Administered Dose 30 ml .ROUTE .STK- MED ONE Stop: 10/17/17 11:08 Last Admin: 10/17/17 13:58 Dose: 30 ml Cefazolin Sodium (Ancef) Confirm Administered Dose 2 gm .ROUTE .STK-MED ONE Stop: 10/17/17 11:08 Last Admin: 10/17/17 13:52 Dose: 2 gm Cefazolin Sodium (Ancef) Confirm Administered Dose 2 gm .ROUTE .STK-MED ONE Stop: 10/17/17 11:45 Cefazolin Sodium (Ancef) Confirm Administered Dose 1 gm .ROUTE .STK-MED ONE Stop: 10/17/17 12:45 Morphine Sulfate 8 mg/Epinephrine HCl 0.3 mg/Cefuroxime Sodium 750 mg/Ketorolac Tromethamine 30 mg/Sodium Chloride 27.9 ml 0 mg .XX ONETIME ONE Stop: 10/17/17 06:47 Last Admin: 10/17/17 19:51 Dose: Not Given Dexamethasone (Dexamethasone) Confirm Administered Dose 20 mg .ROUTE .STK-MED ONE Stop: 10/17/17 13:11 Diphenhydramine HCl (Benadryl) 25 mg IVPUSH Q6H PRN PRN Reason: Pruritis Stop: 10/17/17 18:00 Ephedrine Sulfate (Ephedrine Sulfate) 5 mg IVPUSH ASDIRECTED PRN PRN Reason: Hypotension Stop: 10/17/17 18:00 Ephedrine Sulfate (Ephedrine In Ns) Confirm Administered Dose 25 mg .ROUTE .STK- MED ONE Stop: 10/17/17 14:01 Epinephrine HCl (Adrenalin) Confirm Administered Dose 1 mg .ROUTE .STK-MED ONE Stop: 10/17/17 14:26 Fentanyl (Sublimaze) 50 mcg IVPUSH Q5M PRN PRN Reason: Pain Stop: 10/17/17 18:00 Haloperidol Lactate (Haldol) 1 mg IVPUSH ONETIME ONE Stop: 10/17/17 13:38 Last Admin: 10/18/17 01:33 Dose: Not Given Hydromorphone HCl (Dilaudid) 0.5 mg IVPUSH Q15M PRN PRN Reason: severe pain Stop: 10/17/17 18:00 Hydromorphone HCl (Dilaudid) Confirm Administered Dose 1 mg .ROUTE .STK-MED ONE Stop: 10/17/17 14:39 Lactated Ringer's (Ringers, Lactated) 1,000 mls @ 125 mls/hr IV ASDIRECTED [facility] Stop: 10/17/17 23:00 Last Admin: 10/17/17 11:25 Dose: 125 mls/hr Cefazolin Sodium/Dextrose 2 gm (/ Premix) 50 mls @ 100 mls/hr IV Q8H [facility] Stop: 10/18/17 11:59 Lidocaine HCl (Xylocaine-Mpf 1%) Confirm Administered Dose 4 mls @ as directed .ROUTE .STK-MED ONE Stop: 10/17/17 11:45 Lactated Ringer's (Ringers, Lactated) Confirm Administered Dose 3,000 mls @ as directed .ROUTE .STK-MED ONE Stop: 10/17/17 14:02 Cefazolin Sodium/Dextrose 3 gm (/ Premix) 75 mls @ 100 mls/hr IV Q8H [facility] Stop: 10/18/17 12:14 Cefazolin Sodium/Dextrose 2 gm (/ Premix) 50 mls @ 100 mls/hr IV Q8H [facility] Stop: 10/18/17 11:59 Last Admin: 10/18/17 11:10 Dose: 100 mls/hr Cefazolin Sodium/Dextrose 1 gm (/ Premix) 50 mls @ 100 mls/hr IV Q8H [facility] Stop: 10/18/17 12:29 Last Admin: 10/18/17 12:15 Dose: 100 mls/hr Iodine (Iodine 2% Mild Tincture) Confirm Administered Dose 30 ml .ROUTE .STK- MED ONE Stop: 10/17/17 11:08 Last Admin: 10/17/17 13:50 Dose: 18 ml Ketamine HCl (Ketalar) Confirm Administered Dose 500 mg .ROUTE .STK-MED ONE Stop: 10/17/17 13:03 Ketorolac Tromethamine (Toradol) 15 mg IVPUSH Q6H PRN PRN Reason: Pain Last Admin: 10/18/17 11:11 Dose: 15 mg Ketorolac Tromethamine (Toradol) Confirm Administered Dose 30 mg .ROUTE .STK- MED ONE Stop: 10/17/17 14:00 Lidocaine/Sodium Bicarbonate (Buffered Lidocaine 1% In Ns 8.4%) 0.25 ml IDERM ONETIME PRN PRN Reason: Prior to IV Start Stop: 10/17/17 18:00 Last Admin: 10/17/17 11:24 Dose: 0.25 ml Midazolam HCl (Versed 1 Mg/Ml) Confirm Administered Dose 2 mg .ROUTE .STK-MED ONE Stop: 10/17/17 11:44 Ondansetron HCl (Zofran) Confirm Administered Dose 4 mg .ROUTE .STK-MED ONE Stop: 10/17/17 13:11 Phenylephrine HCl (Phenylephrine In Ns 100 Mcg/Ml) Confirm Administered Dose 1 mg .ROUTE .STK-MED ONE Stop: 10/17/17 14:00 Phenylephrine HCl (Phenylephrine In Ns 100 Mcg/Ml) Confirm Administered Dose 1 mg .ROUTE .STK-MED ONE Stop: 10/17/17 14:07 Propofol (Diprivan 20 Ml) Confirm Administered Dose 600 mg .ROUTE .STK-MED ONE Stop: 10/17/17 11:44 Propofol (Diprivan 20 Ml) Confirm Administered Dose 200 mg .ROUTE .STK-MED ONE Stop: 10/17/17 14:18 Ropivacaine (Naropin 0.5%) Confirm Administered Dose 30 ml .ROUTE .STK-MED ONE Stop: 10/17/17 14:26 Sodium Chloride (Saline Flush) 10 ml FLUSH ASDIRECTED PRN PRN Reason: Keep Vein Open Stop: 10/17/17 18:00 Tranexamic Acid (Cyklokapron) Confirm Administered Dose 1,000 mg .ROUTE .STK- MED ONE Stop: 10/17/17 11:08 Last Admin: 10/17/17 14:06 Dose: 1,000 mg Vancomycin HCl (Vancomycin) Confirm Administered Dose 1 gm .ROUTE .K-MED ONE Stop: 10/17/17 11:08 Last Admin: 10/17/17 14:00 Dose: 1 gm - Exam Quality Assessment: DVT Prophylaxis General: Alert, Oriented, Cooperative, No Acute Distress HEENT: Pupils Equal, EOMI, Mucous Membr. Moist/[place] Neck: Supple Lungs: Clear to Auscultation, Normal Respiratory Effort Cardiovascular: Regular Rate, Regular Rhythm GI/Abdominal Exam: Normal Bowel Sounds, Soft, Non-Tender (Male) Exam: Deferred Extremities: Other (teds and SCD's bilat, ice to knee) Peripheral Pulses: 2+: Dorsalis Pedis (L), Dorsalis Pedis (R) Neurological: No New Focal Deficit Psy/Mental Status: Alert, Normal Affect, Normal Mood Consult PN Assessment/Plan POD#: 1 Procedures: Procedures DIAGNOSTIC COLONOSCOPY (01/24/17) MEDICAL NUTRITION INDIV IN (02/07/17) (1) S/P total knee arthroplasty SNOMED Code(s): 4153704778230, 5601383486050 Code(s): Z96.659 - PRESENCE OF UNSPECIFIED ARTIFICIAL KNEE JOINT Priority: High Current Visit: Yes Qualifiers: Laterality: left Qualified Code(s): Z96.652 - Presence of left artificial knee joint (2) Osteoarthritis SNOMED Code(s): 445588069 Code(s): M19.90 - UNSPECIFIED OSTEOARTHRITIS, UNSPECIFIED SITE Priority: High Current Visit: Yes Qualifiers: Osteoarthritis location: knee Osteoarthritis type: primary Laterality: left Qualified Code(s): M17.12 - Unilateral primary osteoarthritis, left knee (3) HTN (hypertension) SNOMED Code(s): 79383821 Code(s): I10 - ESSENTIAL (PRIMARY) HYPERTENSION Priority: Low Current Visit: No Qualifiers: Hypertension type: unspecified Qualified Code(s): I10 - Essential (primary ) hypertension (4) CAD (coronary artery disease) SNOMED Code(s): 32985404 Code(s): I25.10 - ATHSCL HEART DISEASE OF [place] CORONARY ARTERY W/O ANG PCTRS Priority: Low Current Visit: No Qualifiers: Coronary Disease-Associated Artery/Lesion type: [place] artery [place] vs. transplanted heart: [place] heart Associated angina: angina presence unspecified Qualified Code(s): I25.10 - Atherosclerotic heart disease of [place] coronary artery without angina pectoris (5) History of myocardial infarction SNOMED Code(s): 817142246 Code(s): I25.2 - OLD MYOCARDIAL INFARCTION Priority: Low Current Visit: No (6) History of prostate cancer SNOMED Code(s): 384891123 Code(s): Z85.46 - PERSONAL HISTORY OF MALIGNANT NEOPLASM OF PROSTATE Priority: Low Current Visit: No Problem List Initiated/Reviewed/Updated: Yes My Orders Last 24 Hours: My Active Orders 10/18/17 12:44 Ready for Discharge [RC] PER UNIT ROUTINE Plan: I/P: S/P total knee arthroplasty, POD # 1, Dr. Aleman--doing very well - Pain management and DVT prophylax - PT/OT - RT/IS - Hgb 12.4 - Vital signs stable on room air Chronic conditions: Hypertension-stable, continue home meds History of acute MN, continue home meds/Plavix History of prostate cancer- voiding without difficulty this morning Other: GI Prophylax CM/SW for DC planning-- okay from hospitalist standpoint for discharge home today. Reviewed recommendations and plan with orthopedic team Patient is full Code status. PCP is Dr. Marie with [facility] in [place].
--- NOTE | 2017-10-19 13:36 | PCM.OPNOTE ---
- General Post-Op/Procedure Note Date of Surgery/Procedure: 10/17/17 Operative Procedure(s): left total knee arthroplasty Pre Op Diagnosis: left knee osteoarthrosis Post-Op Diagnosis: Same Anesthesia Technique: Local, MAC, Spinal Primary Surgeon: Augustin Aleman Anesthesia Provider: Kim Goyal Angiography Technologist: Rhoda Liu Angiography Technologist: Noemi Solorio EBL in mLs: 250 Complications: None Condition: Good Free Text/Narrative:: Intake & Output 10/18/17 10/19/17 10/19/17 22:59 06:59 14:59 Intake Total 900 Balance 900
--- NOTE | 2017-10-19 14:25 | OR ---
DATE OF OPERATION: 10/17/2017 SURGEON: Augustin Aleman MD OPERATION PERFORMED: Left total knee arthroplasty. PREOPERATIVE DIAGNOSIS: Left knee osteoarthrosis. POSTOPERATIVE DIAGNOSIS: Left knee osteoarthrosis. ANESTHESIA: Local MAC with spinal. ANESTHESIA PROVIDER: Sofia Mcclure. ASSISTANTS: Rhoda Liu PA-C, and Noemi Solorio LPN. ESTIMATED BLOOD LOSS: 250 mL. COMPLICATIONS: None. CONDITION: Stable. IMPLANTS: 1. Poynette size 6 press-fit PS femur. 2. Shavonne size 5 press-fit tibial baseplate. 3. Shavonne size 9 mm PS X3 polyethylene. 4. Shavonne size 35 x 10 mm press-fit patella. DESCRIPTION OF PROCEDURE: The patient was identified in the preop holding area. Proper site was marked and identified by the surgeon. The patient was taken back to the operating theater. After adequate anesthesia, the patient's left lower extremity had a nonsterile tourniquet applied and it was then sterilely prepped and draped in the usual sterile fashion. OR timeout was performed. The patient received 2 grams IV Ancef. At this time, left lower extremity was exsanguinated. Tourniquet was insufflated to 300 mmHg. Standard medial parapatellar incision was made. Medial parapatellar arthrotomy was created. Deep fibers of the MCL were raised and anterior fat pad was resected. At this time, attention was turned to the patella. Patella measured 25, it was resected to a 15 for a 35 x 10 mm patella. Drill holes were then drilled and found to be in adequate position. The drill was then drilled in the distal femur and the intramedullary distal femoral cutting guide was then placed. 8 mm was resected off the distal femur and was found to be an adequate resection. Sizing guide was placed. It was found to be a size 6 press-fit PS femur that was shown on the implant record at the beginning of this dictation. The drill holes were drilled for the epicondylar axis using Whitesides line and epicondyles as reference. At this time, the 4-in-1 cutting block was placed. An anterior posterior and anterior and posterior chamfer cuts were then completed. The correct size box cut was then placed and the box cut was completed and found to be an adequate resection. Attention was turned to the tibia. The posterior medial lateral retractors were placed. The extramedullary tibial guide was placed. It was placed in the old footprint of the ACL. It was aligned with the center of the ankle and 0 degrees of slope, 9 mm was then resected off the unaffected lateral side. There was found to be an acceptable reduction. At this time, posterior osteophytes were removed along with medial and lateral meniscus. A trial implant was placed with a correct sized tibia that was mentioned at the beginning of the dictation. A Shavonne size 9 mm PS X3 polyethylene was then placed. The patient's knee was brought through range of motion. The patella was tracking centrally and was stable to varus and valgus stress. Alignment was found to be roughly at 0 degrees. The tibia was stamped and drilled in proper rotation. The universal tibial base plate was impacted into place. Next, the size 6 press-fit PS femur was impacted into place and the Shavonne size 9 mm PS X3 polyethylene was placed. The patient's knee was brought into full extension. The patella was then prress-fit into place at this time. Tourniquet was deflated. One liter dilute Betadine solution was irrigated through the knee along with 3 L of pulse lavage irrigation with Ancef. Periarticular injection was then completed. The patient's knee was brought through a range of motion. Knee was found to be stable to varus valgus stress, the patella was tracking centrally with full range of motion. At this time, a #2 barbed suture was used for closure of the medial parapatellar arthrotomy. Topical tranexamic acid was placed. 2-0 Vicryl was used subcutaneously, a running 3-0 Monocryl was used subcuticularly. The patient tolerated the procedure well and was sent to the PACU in a stable condition. MMODAL /[id number] JAXON
== END 2017-10-18 14:55 | disposition home or self-care (01) ==
LOC: JD.SDS 11:01 → JD.MS 11:07 → JD.SDS 11:07 → JD.MS 13:27 → JD.OB 13:27 → JD.SDS 15:09 → JD.MS 16:00 → JD.SDS 10-18 14:55
PROVIDERS: ATTEND Orthopaedic Surgery
DX: M17.0 Bilateral primary osteoarthritis of knee (principal); I25.10 Atherosclerotic heart disease of native coronary artery without angina pectoris; I25.2 Old myocardial infarction; I10 Essential (primary) hypertension; J30.2 Other seasonal allergic rhinitis; Z79.82 Long term (current) use of aspirin; Z79.01 Long term (current) use of anticoagulants; Z79.899 Other long term (current) drug therapy; Z90.89 Acquired absence of other organs; Z95.5 Presence of coronary angioplasty implant and graft; Z98.890 Other specified postprocedural states; Z92.3 Personal history of irradiation; Z87.891 Personal history of nicotine dependence; Z80.42 Family history of malignant neoplasm of prostate
CPT/HCPCS: 27447; 36415; 73560; 80053; 85027; 87641; 94762; 97110; 97116; 97161; 97165; 97535; A9270; J0171; J0690; J0697; J1100; J1170; J1885; J2250; J2270; J2405; J2795; J3370; J3490; J7050; J7120; 01402; 64450; C1776; J2001; J2704

== ENCOUNTER → 2021-05-14 | Day surgery (SDC) | payer BC ==
[~2021-05-14] MED LIST changes: -Bisacodyl 5 MG Tab PO PRN; +Bupivacaine 0.25% 10 ML SDV ONE; -Cyclobenzaprine 10 MG Tab PO PRN; +Ketorolac 30 MG/ML SDV ONE; +Lidocaine 1% 30 ML SDV ONE; +Lidocaine 1% 4 ML ONE; -Magnesium Hydroxide 400 MG/5 ML Susp 30 ML Cup PO PRN; +Midazolam 1 MG/ML 2 ML SDV ONE; -Morphine 2 MG/ML Syringe IVPUSH PRN; -Naloxone 0.4 MG/ML SDV IVPUSH PRN; -Ondansetron 4 MG/2 ML SDV IVPUSH PRN; +Propofol 200 MG/20 ML SDV ONE; -Sennosides 8.6 MG Tab PO PRN; +ceFAZolin 1 GM Vial ONE; -diphenhydrAMINE 50 MG/ML SDV IVPUSH PRN; +fentaNYL 100 MCG/2 ML SDV ONE
--- NOTE | 2021-05-14 07:31 | PCM.PREANE ---
Preanesthetic Assessment - Procedure Proposed Procedure: bilateral carpal tunnel release - Anesthesia/Transfusion/Family Hx Anesthesia History: Prior Anesthesia Without Reaction Family History of Anesthesia Reaction: No Transfusion History: No Prior Transfusion(s) Intubation History: Unknown - Review of Systems General: No Symptoms Pulmonary: No Symptoms Cardiovascular: No Symptoms Gastrointestinal: No Symptoms Neurological: No Symptoms Other: Reports: Easy Bruising, Thyroid Problems, Neck Pain (and shoulder problems-circulatory) - Physical Assessment NPO Status Date: 05/13/21 NPO Status Time: 20:00 Vital Signs: 149/87 68 94% Height: 5 ft 10 in Weight: 127 kg ASA Class: 3 Mental Status: Alert & Oriented x3 Airway Class: Mallampati = 2 Dentition: Reports: Normal Dentition Thyro-Mental Finger Breadths: 3 Mouth Opening Finger Breadths: 3 ROM/Head Extension: Full Lungs: Clear to Auscultation, Normal Respiratory Effort Cardiovascular: Regular Rate, Regular Rhythm - Allergies Allergies/Adverse Reactions: Allergies Allergy/AdvReac Type Severity Reaction Status Date / Time No Known Allergies Allergy Verified 05/13/21 14:46 - Blood Blood Available: No - Anesthesia Plan Beta Bertha: Metoprolol Med Last Dose Date: 05/14/21 Med Last Dose Time: 05:30 - Acknowledgements Anesthesia Type Planned: MAC Pt an Appropriate Candidate for the Planned Anesthesia: Yes Alternatives and Risks of Anesthesia Discussed w Pt/Guardian: Yes Pt/Guardian Understands and Agrees with Anesthesia Plan: Yes PreAnesthesia Questionnaire HEENT History: Reports: Impaired Vision, Other (See Below) Other HEENT History: wears glasses, hearing aids Cardiovascular History: Reports: CAD, Hypertension, [place], Stents (2004), Other (See Below) Other Cardiovascular History: arteriosclerotic heart disease Respiratory History: Reports: None Gastrointestinal History: Reports: GERD Genitourinary History: Reports: Other (See Below) Other Genitourinary History: prostate neoplasm INSTRUCTOR BUSINESS EDUCATION History: Reports: None Musculoskeletal History: Reports: Other (See Below) Other Musculoskeletal History: left knee pain, right foot fracture x 2 Neurological History: Reports: Other (See Below) Other Neuro History: back surgery herniated/ruptured disc Psychiatric History: Reports: None Endocrine/Metabolic History: Reports: Hypothyroidism, Obesity/BMI 30+ Hematologic History: Reports: None Immunologic History: Reports: None Oncologic (Cancer) History: Reports: Prostate Dermatologic History: Reports: None - Past Surgical History HEENT Surgical History: Reports: Oral Surgery, Tonsillectomy Cardiovascular Surgical History: Reports: None, Coronary Artery Stent Respiratory Surgical History: Reports: None GI Surgical History: Reports: Colonoscopy, EGD Female Surgical History: Reports: None Male Surgical History: Reports: None Endocrine Surgical History: Reports: None Neurological Surgical History: Reports: Lumbar Spine, Other (See Below) Oncologic Surgical History: Reports: None Dermatological Surgical History: Reports: None - SUBSTANCE USE Tobacco Use Status *Q: Former Tobacco User Tobacco Use Within Last Twelve Months: No Second Hand Smoke Exposure: No Days Per Week of Alcohol Use: 0 Recreational Drug Use History: No - HOME MEDS Home Medications: Home Meds Clopidogrel Bisulfate [Clopidogrel] 75 mg PO DAILY 10/14/17 [History] Losartan [Cozaar] 100 mg PO DAILY 10/14/17 [History] Metoprolol Succinate 50 mg PO DAILY 10/14/17 [History] Pantoprazole Sodium [Protonix] 40 mg PO DAILY PRN 10/14/17 [History] amLODIPine Besylate [Amlodipine Besylate] 5 mg PO DAILY 10/14/17 [History] traMADol HCl [Tramadol HCl] 50 mg PO TID PRN 10/14/17 [History] Aspirin 81 mg PO DAILY 05/13/21 [History] Ibuprofen [Motrin] 600 mg PO BID PRN 05/13/21 [History] Levothyroxine [Synthroid] 50 mcg PO DAILY 05/13/21 [History] Rosuvastatin Calcium [Crestor] 40 mg PO DAILY 05/13/21 [History] - CURRENT (IN HOUSE) MEDS Current Meds: Current Medications Lactated Ringer's (Ringers, Lactated) 1,000 mls @ 125 mls/hr IV ASDIRECTED VICENTA Lidocaine/Sodium Bicarbonate (Lidocaine 1%/Sod Bicarbonate In Ns 8.4% 1 Ml Syringe) 0.25 ml IDERM ONETIME PRN PRN Reason: Prior to IV Start Sodium Chloride (Sodium Chloride 0.9% 10 Ml Syringe) 10 ml FLUSH ASDIRECTED PRN PRN Reason: Keep Vein Open Discontinued Medications Bupivacaine HCl (Bupivacaine 0.25% 10 Ml Sdv) Confirm Administered Dose 30 ml .ROUTE .STK-MED ONE Stop: 05/14/21 07:18 Lidocaine HCl (Lidocaine 1% 30 Ml Sdv) Confirm Administered Dose 30 ml .ROUTE .STK-MED ONE Stop: 05/14/21 07:18 Lidocaine HCl (Lidocaine 1% 30 Ml Sdv) Confirm Administered Dose 30 ml .ROUTE .STK-MED ONE Stop: 05/14/21 07:19
--- NOTE | 2021-05-14 09:13 | PCM48HPAN ---
Post Anesthesia Note - EVALUATION WITHIN 48HRS OF ANESTHETIC Vital Signs in Normal Range: Yes Patient Participated in Evaluation: Yes Respiratory Function Stable: Yes Airway Patent: Yes Cardiovascular Function Stable: Yes Hydration Status Stable: Yes Pain Control Satisfactory: Yes Nausea and Vomiting Control Satisfactory: Yes Mental Status Recovered: Yes Vital Signs: Last Vital Signs Temp 97.2 F 05/14/21 07:05 Pulse 68 05/14/21 07:05 Resp 20 05/14/21 07:05 BP 149/87 H 05/14/21 07:05 Pulse Ox 94 L 05/14/21 07:05 0908 142/82 93% with oxygen at 2 l 12 97.1
[2021-05-14 15:44] VITALS: BP 123/74; PULSE 56
--- NOTE | 2021-06-01 07:25 | PCM.OPNOTE ---
- General Post-Op/Procedure Note Date of Surgery/Procedure: 05/14/21 Operative Procedure(s): bilateral carpal tunnel release Pre Op Diagnosis: bilateral median nerve compression neuropathy Post-Op Diagnosis: Same Anesthesia Technique: Local, MAC Primary Surgeon: Augustin Aleman Anesthesia Provider: Jose Smith Regulatory Affairs Strategy Specialist: Rhoda Liu EBL in mLs: 5 Complications: None Condition: Good
--- NOTE | 2021-06-01 07:50 | OR ---
DATE OF OPERATION: 05/14/2021 SURGEON: Augustin Aleman MD OPERATION PERFORMED: Bilateral carpal tunnel release. PREOPERATIVE DIAGNOSIS: Bilateral median nerve compression neuropathy. POSTOPERATIVE DIAGNOSIS: Bilateral median nerve compression neuropathy. ANESTHESIA: Local MAC. ANESTHESIA PROVIDER: Jose Smith CRNA HAND TIRE TRIMMER: Rhoda Liu PA-C ESTIMATED BLOOD LOSS: Less than 5 mL. COMPLICATIONS: None. CONDITION: Stable. DESCRIPTION OF PROCEDURE: The patient was identified in the preop holding area. Proper site was marked and identified by the surgeon. The patient was taken back to the operating theater where after adequate anesthesia, the patient's left upper extremity was sterilely prepped and draped in the usual sterile fashion. OR time-out was performed. The patient did not receive antibiotics and it is not indicated for soft tissue hand procedure. At this time, the left upper extremity was exsanguinated and an Esmarch was used as a tourniquet on the forearm. At this time, using 1% lidocaine without epinephrine and 0.25% Marcaine without epinephrine, the palmar cutaneous branch of the median nerve was anesthetized and then the incisional site was anesthetized using Rea cardinal line and ulnar border of the fourth digit as reference. Once this had set up, an incision was made. Blunt dissection was taken down to the palmar cutaneous fascia. Palmar cutaneous fascia was incised with a [place] blade. At this time, the transverse carpal ligament was identified. A small rent was made in the transverse carpal ligament with a [place] blade under direct visualization. Resection of the transverse carpal ligament was done distally using tenotomy scissors making sure to stop short of the palmar arch. At this time, attention was turned proximally after it was found to be adequately released. Using the tenotomy scissors keeping the tips ulnar to protect the palmar cutaneous branch of the median nerve, the superficial forearm fascia as well as the transverse carpal ligament were resected proximally. It was found to be adequate release both proximally and distally. At this time, adequate saline was irrigated through the wound. 4-0 nylon sutures were used closure of the skin. The patient was placed in a sterile soft dressing and sent to PACU in stable condition. At this time, the right upper extremity was exsanguinated and an Esmarch was used as a tourniquet on the forearm. At this time, using 1% lidocaine without epinephrine and 0.25% Marcaine without epinephrine, the palmar cutaneous branch of the median nerve was anesthetized and then the incisional site was anesthetized using Rea cardinal line and ulnar border of the fourth digit as reference. Once this had set up, an incision was made. Blunt dissection was taken down to the palmar cutaneous fascia. Palmar cutaneous fascia was incised with a [place] blade. At this time, the transverse carpal ligament was identified. A small rent was made in the transverse carpal ligament with a [place] blade under direct visualization. Resection of the transverse carpal ligament was done distally using tenotomy scissors making sure to stop short of the palmar arch. At this time, attention was turned proximally after it was found to be adequately released. Using the tenotomy scissors keeping the tips ulnar to protect the palmar cutaneous branch of the median nerve, the superficial forearm fascia as well as the transverse carpal ligament were resected proximally. It was found to be adequate release both proximally and distally. At this time, adequate saline was irrigated through the wound. 4-0 nylon sutures were used closure of the skin. The patient was placed in a sterile soft dressing and sent to PACU in stable condition. NUNU /[id number] JAXON
== END | disposition home or self-care (01) ==
LOC: JD.SDS 06:59
PROVIDERS: ATTEND Orthopaedic Surgery
DX: G56.13 Other lesions of median nerve, bilateral upper limbs (principal); G56.03 Carpal tunnel syndrome, bilateral upper limbs; I25.10 Atherosclerotic heart disease of native coronary artery without angina pectoris; I10 Essential (primary) hypertension; I25.2 Old myocardial infarction; E78.5 Hyperlipidemia, unspecified; Z79.82 Long term (current) use of aspirin; Z79.899 Other long term (current) drug therapy; Z98.890 Other specified postprocedural states
CPT/HCPCS: 64721; J0690; J1885; J2250; J2704; J3010; J3490; J7120; 01810

== ENCOUNTER 2021-06-13 16:48 | Emergency (ER) | payer BC | END 2021-06-13 17:38 | disposition left against medical advice (07) | LOC: JD.ED 16:48 | DX: R30.0 Dysuria (principal); Z53.21 Procedure and treatment not carried out due to patient leaving prior to being seen by health care provider ==

== ENCOUNTER → 2021-07-16 | Day surgery (SDC) | payer BC ==
--- NOTE | 2021-07-14 13:08 | PCM.SN.2 ---
- Free Text/Narrative Note: Anesthesia Note: Interscalene Block Date: 07/16/2021 Time Out: Start: Stop: Current Procedure: Right interscalene block under US guidance for postoperative pain control requested by Dr. Aleman. Patient chart reviewed, risk/benefits discussed with patient, consent obtained. Patient positioned supine, monitors/alarms on, oxygen placed via nasal cannula at 2 LPM. IV sedation administered: Versed mg IV, Fentanyl____ mcg IV given in preop prior to block placement. Right shoulder prepped with two chloropreps. Sterile drapes placed with aseptic technique noted. Under US guidance, right subclavian artery visualized along with the right brachial plexus. Plexus followed up to C6 cricoid level, and area localized with 2mls of 1% lidocaine. 22gauge 2 inch stimiplex needle advanced under US with 0.6mV with stimulation of biceps noted. Good stimulation noted with decreased voltage and absent at 0.3mVs. 1ml of Normal Saline injected with loss of stimulation noted to confirm needle not placed intraneurally. Incremental dosing of 5mls with negative aspiration noted prior to each injection of 0.5% ropivacaine with 1:200,000 epinephrine. Total volume=30mls. Please refer to nurses noted for vital signs. Sarah Ansari CRNA Time Documentation
[~2021-07-16] MED LIST changes: -Bupivacaine 0.25% 10 ML SDV ONE; +EPINEPHrine 1 MG/ML 30 ML MDV IRR SCH; -Ketorolac 30 MG/ML SDV ONE; -Lidocaine 1% 30 ML SDV ONE; -Lidocaine 1% 4 ML ONE; -Propofol 200 MG/20 ML SDV ONE; -ceFAZolin 1 GM Vial ONE; -fentaNYL 100 MCG/2 ML SDV ONE
--- NOTE | 2021-07-16 07:56 | PCM.PREANE ---
Preanesthetic Assessment - Procedure Proposed Procedure: Right SVA with rotator cuff repair, subacromial decompression - Anesthesia/Transfusion/Family Hx Anesthesia History: Prior Anesthesia Without Reaction Family History of Anesthesia Reaction: No Transfusion History: No Prior Transfusion(s) Intubation History: Unknown - Review of Systems General: No Symptoms Pulmonary: No Symptoms (Former Smoker: 2004) Cardiovascular: No Symptoms (CAD, HTN, elevated lipids, History of [place] 2004 with stents noted.) Gastrointestinal: No Symptoms Neurological: No Symptoms (Back surgery: ), Tingling (bilateral hands (CTR) noted bilaterally) Other: Reports: None (History of prostate cancer with implanted seeds noted.), Easy Bruising (Last dose of Plavix: 07/09/21), Thyroid Problems (hypothyroid), Neck Pain - Physical Assessment NPO Status Date: 07/15/21 NPO Status Time: 19:00 Vital Signs: HR: 69 Sat: 96% Temp: 97.1 B/P: 180/103/ 175/87 Resp: 16 Height: 1.8 m Weight: 128 kg ASA Class: 3 Mental Status: Alert & Oriented x3 Airway Class: Mallampati = 2 Dentition: Reports: Normal Dentition, Caries Thyro-Mental Finger Breadths: 3 Mouth Opening Finger Breadths: 3 ROM/Head Extension: Full Lungs: Clear to Auscultation, Normal Respiratory Effort Cardiovascular: Regular Rate, Regular Rhythm, No Murmurs - Lab Values: All labs reviewed and noted and within acceptable ranges to proceed with scheduled procedure. - Imaging/EKG Impressions: EKG: SR rate= 69 CXR: negative - Allergies Allergies/Adverse Reactions: Allergies Allergy/AdvReac Type Severity Reaction Status Date / Time No Known Allergies Allergy Verified 07/15/21 12:43 - Anesthesia Plan Pre-Op Medication Ordered: Beta Bertha Beta Bertha: Metoprolol Med Last Dose Date: 07/16/21 Med Last Dose Time: 07:00 - Acknowledgements Anesthesia Type Planned: General Anesthesia (Right ISB under US guidance for post operative pain control reqested by Dr. Aleman.) Pt an Appropriate Candidate for the Planned Anesthesia: Yes Alternatives and Risks of Anesthesia Discussed w Pt/Guardian: Yes Pt/Guardian Understands and Agrees with Anesthesia Plan: Yes PreAnesthesia Questionnaire HEENT History: Reports: Impaired Vision, Other (See Below) Other HEENT History: wears glasses, hearing aids Cardiovascular History: Reports: CAD, Hypertension, [place], Stents, Other (See Below) Other Cardiovascular History: arteriosclerotic heart disease Respiratory History: Reports: None Gastrointestinal History: Reports: GERD Genitourinary History: Reports: Other (See Below) Other Genitourinary History: prostate neoplasm HOME HEALTH OCCUPATIONAL THERAPIST History: Reports: None Musculoskeletal History: Reports: Other (See Below) Other Musculoskeletal History: left knee pain, right foot fracture x 2 Neurological History: Reports: Other (See Below) Other Neuro History: back surgery herniated/ruptured disc Psychiatric History: Reports: None Endocrine/Metabolic History: Reports: Hypothyroidism, Obesity/BMI 30+ Hematologic History: Reports: None Immunologic History: Reports: None Oncologic (Cancer) History: Reports: Prostate Dermatologic History: Reports: None - Infectious Disease History Infectious Disease History: Reports: None - Past Surgical History HEENT Surgical History: Reports: Oral Surgery, Tonsillectomy Cardiovascular Surgical History: Reports: None, Coronary Artery Stent Respiratory Surgical History: Reports: None GI Surgical History: Reports: Colonoscopy, EGD Female Surgical History: Reports: None Male Surgical History: Reports: None Endocrine Surgical History: Reports: None Neurological Surgical History: Reports: Lumbar Spine, Other (See Below) Musculoskeletal Surgical History: Reports: Knee Replacement Oncologic Surgical History: Reports: None Dermatological Surgical History: Reports: None - SUBSTANCE USE Tobacco Use Status *Q: Former Tobacco User Recreational Drug Use History: No - HOME MEDS Home Medications: Home Meds Clopidogrel Bisulfate [Clopidogrel] 75 mg PO DAILY 10/14/17 [History] Losartan [Cozaar] 100 mg PO DAILY 10/14/17 [History] Metoprolol Succinate 50 mg PO DAILY 10/14/17 [History] Pantoprazole Sodium [Protonix] 40 mg PO DAILY PRN 10/14/17 [History] amLODIPine Besylate [Amlodipine Besylate] 5 mg PO DAILY 10/14/17 [History] Aspirin 81 mg PO DAILY 05/13/21 [History] Levothyroxine [Synthroid] 50 mcg PO DAILY 05/13/21 [History] Rosuvastatin Calcium [Crestor] 40 mg PO DAILY 05/13/21 [History] Cyclobenzaprine [Flexeril] 10 mg PO BID PRN #20 tab 07/15/21 [Rx] oxyCODONE 5 - 10 mg PO Q6H PRN #30 tab 07/15/21 [Rx] - CURRENT (IN HOUSE) MEDS Current Meds: Current Medications Epinephrine HCl (Epinephrine 1 Mg/Ml 30 Ml Mdv) 3 mg IRR ONETIME VICENTA Stop: 07/16/21 23:00 Lactated Ringer's (Ringers, Lactated) 1,000 mls @ 125 mls/hr IV ASDIRECTED VICENTA Stop: 07/16/21 23:00 Lidocaine/Sodium Bicarbonate (Lidocaine 1%/Sod Bicarbonate In Ns 8.4% 1 Ml Syringe) 0.25 ml IDERM ONETIME PRN PRN Reason: Prior to IV Start Stop: 07/16/21 18:00 Sodium Chloride (Sodium Chloride 0.9% 10 Ml Syringe) 10 ml FLUSH ASDIRECTED PRN PRN Reason: Keep Vein Open Stop: 07/16/21 18:00
[2021-07-16 09:32] VITALS: BP 180/103; PULSE 69
--- NOTE | 2021-07-16 10:16 | PCM.SN.2 ---
- Free Text/Narrative Note: Anesthesia Note: Patient presents for scheduled Right SVA, with elevated B/P's noted: 180's systolic. Patient interviewed and discussion presented for the requested evaluation of cardiology, and urology. Patient states he is in chronic pain, and that he feels that the pain is causing the elevated blood pressure. Patient exhibited understanding of the importance of being sure heart is healthy before proceeding with an elective surgery. Patient also exhibited disappointment for the request to post pone until r eceiving cardiac clearance, and a review and adjustment to blood pressure medication. Thank you! Sarah DE LUNA Time Documentation
== END | disposition home or self-care (01) ==
LOC: JD.SDS 08:30
PROVIDERS: ATTEND Orthopaedic Surgery
DX: I10 Essential (primary) hypertension (principal); Z53.09 Procedure and treatment not carried out because of other contraindication; I25.10 Atherosclerotic heart disease of native coronary artery without angina pectoris; I25.2 Old myocardial infarction; E03.9 Hypothyroidism, unspecified; E66.9 Obesity, unspecified; Z98.890 Other specified postprocedural states; Z79.82 Long term (current) use of aspirin; Z79.890 Hormone replacement therapy; Z87.891 Personal history of nicotine dependence; Z79.899 Other long term (current) drug therapy; Z68.39 Body mass index [BMI] 39.0-39.9, adult
CPT/HCPCS: 82947; J2250; J7120

== ENCOUNTER 2022-06-16 10:14 | Day surgery (SDC) | payer BC ==
[~2022-06-16 10:14] MED LIST changes: +Lactated Ringers 1,000 ML ONE; +Lidocaine 1% 4 ML ONE; +Ondansetron 4 MG/2 ML SDV ONE; +Propofol 200 MG/20 ML SDV ONE; +Rocuronium 50 MG/5 ML Vial ONE; +Sodium Chloride 0.9% 10 ML Syringe FLUSH SCH; +ceFAZolin 2 GM Vial ONE; +fentaNYL 100 MCG/2 ML SDV ONE
[2022-06-16] MEDS ORDERED: EPINEPHrine 1 MG/ML SDV ONE (10:18)
[2022-06-16] MEDS ORDERED: Ropivacaine 0.5% 5 MG/ML 30 ML SDV ONE (10:19)
[2022-06-16] MEDS ORDERED: ceFAZolin 2 GM Vial ONE (11:05)
[2022-06-16 11:12] LABS: ESTIMATED GFR 84 mL/min (>60)
[2022-06-16] MEDS ORDERED: Propofol 200 MG/20 ML SDV ONE (11:29)
[2022-06-16] MEDS ORDERED: ePHEDrine 50 MG/ML SDV ONE (11:50)
[2022-06-16] MEDS ORDERED: HYDROmorphone 0.5 MG/0.5 ML Syringe IVPUSH PRN (12:18)
[2022-06-16] MEDS ORDERED: Ondansetron 4 MG/2 ML SDV IVPUSH PRN (12:18)
[2022-06-16] MEDS ORDERED: fentaNYL 100 MCG/2 ML SDV IVPUSH PRN (12:18)
[2022-06-16] MEDS ORDERED: Neostigmine Methylsulfate 10 MG/10 ML MDV ONE (12:21)
[2022-06-16] MEDS ORDERED: oxyCODONE 5 MG Tab PO ONE (13:42)
[2022-06-16] MEDS ORDERED: Albuterol 0.083% 2.5 MG/3 ML Neb Soln NEB ONE (14:24)
[2022-06-16 16:41] VITALS: BP 116/68; PULSE 60
== END 2022-06-16 16:10 | disposition home or self-care (01) ==
LOC: JD.SDS 10:14
PROVIDERS: ATTEND Orthopaedic Surgery
DX: M75.102 Unspecified rotator cuff tear or rupture of left shoulder, not specified as traumatic (principal); M75.22 Bicipital tendinitis, left shoulder; M25.812 Other specified joint disorders, left shoulder; I10 Essential (primary) hypertension; E11.9 Type 2 diabetes mellitus without complications; I25.10 Atherosclerotic heart disease of native coronary artery without angina pectoris; E03.9 Hypothyroidism, unspecified; K21.9 Gastro-esophageal reflux disease without esophagitis; E66.9 Obesity, unspecified; Z68.39 Body mass index [BMI] 39.0-39.9, adult; Z79.899 Other long term (current) drug therapy; Z79.890 Hormone replacement therapy; Z98.890 Other specified postprocedural states; Z79.82 Long term (current) use of aspirin; Z91.09 Other allergy status, other than to drugs and biological substances; Z87.891 Personal history of nicotine dependence
CPT/HCPCS: 29823; 29827; 36415; 80048; A9270; C1713; J0171; J0690; J2250; J2405; J2704; J2710; J2795; J3010; J7120; 01638; 64415; 76942